=== PATIENT | male | born 1985 | race Caucasian/White ===

== ENCOUNTER 2018-04-07 11:21 | Emergency (ER) | payer SELFPAY ==
[2018-04-07 11:52] VITALS: BP 152/92; PULSE 60; TEMP 97; BMI 31.2
[2018-04-07] MEDS ORDERED: DIPHTH,PERTUSS(ACELL),TET 0.5 ML DISP.SYRIN IM ONE ×2 (12:41→12:54)
--- NOTE | 2018-04-07 12:44 | PDOC ---
History of Present Illness - General Chief Complaint: Injury Stated Complaint: RT FINGER CUT Time Seen by Provider: 04/07/18 12:36 - History of Present Illness Initial Comments: 04/07/18 12:43 32-year-old male not current on tetanus, presents for evaluation of a laceration of his right fourth digit. 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 Past History - Past Medical History Allergies/Adverse Reactions: Allergies Allergy/AdvReac Type Severity Reaction Status Date / Time No Known Allergies Allergy Verified 04/07/18 11:49 Home Medications: Ambulatory Orders Cephalexin [Keflex] 500 mg PO QID #20 capsule 04/07/18 Ibuprofen [Motrin -] 600 mg PO TID #30 tablet 04/07/18 COPD: No - Suicide/Smoking/Psychosocial Hx Smoking History: Never smoked Have you smoked in the past 12 months: No Information on smoking cessation initiated: No Hx Alcohol Use: No Drug/Substance Use Hx: No Review of Systems - Review of Systems Integumentary: Yes: See HPI *Physical Exam - Vital Signs Last Vital Signs Temp Pulse Resp BP Pulse Ox 97 F L 60 18 152/92 100 04/07/18 11:49 04/07/18 11:49 04/07/18 11:49 04/07/18 11:49 04/07/18 11:49 - Physical Exam Comments: 04/07/18 12:44 Right fourth finger skin color and temperature are normal. FDS and FDP work independently. There is a 2 cm laceration on the ulnar aspect of the finger adjacent to the nail bed in a C-shaped orientation. There are no gross sensorimotor deficits. Moderate Sedation - Procedure Monitoring Vital Signs: Procedure Monitoring Vital Signs Temperature 97 F L 04/07/18 11:49 Pulse Rate 60 04/07/18 11:49 Respiratory Rate 18 04/07/18 11:49 Blood Pressure 152/92 04/07/18 11:49 O2 Sat by Pulse Oximetry (%) 100 04/07/18 11:49 ED Treatment Course - RADIOLOGY Radiology Studies Ordered: Category Date Time Status FINGER(S) RIGHT [RAD] Stat Radiology 04/07/18 12:41 Ordered Medical Decision Making - Medical Decision Making 04/07/18 13:29 The right fourth finger was aseptically prepped and anesthetized with 1% lidocaine 6 mL in a digital block this was tolerated well the wound was again sterilely prepped copiously irrigated and explored to its base in a bloodless field. There was no foreign body identified or visualized bone. Edges of the wound were approximated with 5 simple sutures using 4-0 Prolene this was tolerated well a dry sterile dressing was placed. Frog splint applied 04/07/18 13:30 This case was discussed with Dr. Hernandes from hand surgery who will see the patient in follow-up. 04/07/18 13:38 04/07/18 13:39 *DC/Admit/Observation/Transfer Diagnosis at time of Disposition: Open fracture of tuft of distal phalanx of finger - Discharge Dispostion Disposition: HOME Condition at time of disposition: Stable Decision to Admit order: No - Referrals Referrals: Demetrius Hernandes MD [Staff Physician] - - Patient Instructions Printed Discharge Instructions: DI for Open Fracture Additional Instructions: Regrese a la josé de emergencias en avinash de que haya enrojecimiento, drenaje, hinchazn o dolor creciente. Tram el aderezo encendido marci 48 horas. Despus de 48 horas, puede retirar el apsito y danish el beni con agua y jabn y dejarlo al aire haja. Si tienes que trabajar l debe usar un guante. Por favor, tome los antibiticos segn las indicaciones y termine todo el curso. El antiinflamatorio carlos silvana tableta 3 veces al da con alimentos Leese suspende el medicamento si le molesta el estmago. Tambin puede marcos Tylenol adems del beni antiinflamatoria; tylenol segn las indicaciones. Seguimiento con ciruga de la mano Dr. Hernandes [phone]. Usted debe ser visto dentro de los prximos 1-2 hall. Nava vacuna contra el ttanos se actualiz hoy en la josé de emergencias; se le administrar silvana dosis de antibiticos por va intravenosa porque tiene silvana fractura abierta. Y necesita tratamiento antibitico ambulatorio marci los prximos 5 hall para prevenir la infeccin. return to the emergency room should there be any redness drainage swelling or increasing pain. Leave the dressing on for 48 hours. After 48 hours and may remove the dressing and wash the area with soap and water and leave it open to air. If you must work he must wear a glove. Please take the antibiotics as directed and finish the entire course. The anti-inflammatory as one tablet 3 times a day with food Leese discontinue the medication if it bothers her stomach. He may also take Tylenol in addition to the anti-inflammatory area please take Tylenol as directed. Follow-up with hand surgery Dr. Hernandes . You should be seen within the next 1-2 days. Your tetanus shot was updated today in the emergency room he will given a dose of IV antibiotics because you have an open fracture. An you require outpatient antibiotic therapy for the next 5 days to prevent infection. - Post Discharge Activity
[2018-04-07] MEDS ORDERED: CEFAZOLIN 1 GM in DEXTROSE 5%-WATER - 50 ML IVPB ONE (13:01)
[2018-04-07] MEDS ORDERED: CEFAZOLIN 1 GM/D5W 1 GM/50 ML BAG ONE (13:08)
== END 2018-04-07 14:03 | disposition home or self-care (01) ==
LOC: JERFT 11:21
PROC: 0JQJ0ZZ Repair Right Hand Subcutaneous Tissue and Fascia, Open Approach (ICD-10-PCS; principal; 2018-04-07)
PROC: 2W3JX1Z Immobilization of Right Finger using Splint (ICD-10-PCS; 2018-04-07)
DX: S62.634B Displaced fracture of distal phalanx of right ring finger, initial encounter for open fracture (principal); W22.8XXA Striking against or struck by other objects, initial encounter; Y93.H3 Activity, building and construction; Y92.69 Other specified industrial and construction area as the place of occurrence of the external cause; Y99.0 Civilian activity done for income or pay
CPT/HCPCS: 73140-TC-RT-FY; 90715; 99281-25